=== PATIENT | female | born 1970 | race Two or more races ===

== ENCOUNTER 2018-07-03 11:07 | Emergency (ER) | payer OTHER ==
[~2018-07-03] VITALS: Ht 167.6 cm; Wt 113.4 kg
[2018-07-03 11:29] VITALS: BP 122/80
[2018-07-03 12:18] LABS: INFLUENZA A PATIENT NEGATIVE (NEGATIVE); INFLUENZA B PATIENT NEGATIVE (NEGATIVE)
--- NOTE | 2018-07-03 12:32 | RAD ---
CHEST PA LATERAL Clinical indications: COUGH AND CHEST TIGHTNESS X 4 DAYS COMPARISON: None available. Findings: No acute lung infiltrate or pleural effusion or pulmonary edema or lung mass or pneumothorax is seen. The heart size, pulmonary vasculature, mediastinum and both danna are unremarkable. The osseous structures appear intact. Impression: No acute radiographic abnormality is seen. Electronically signed by: Saul Miller MD (07/03/2018 12:29 PM) [facility]
[2018-07-03] MEDS ORDERED: FLUT9.9S NS (13:17)
[2018-07-03] MEDS ORDERED: BENZ100C PO (13:17)
[2018-07-03] MEDS ORDERED: VENTOLIN HFA18 GM INH (13:17)
--- NOTE | 2018-07-03 13:17 | PHYS DOC ---
Past Medical History Past Medical History: Hypertension Past Surgical History: Hysterectomy Alcohol Use: None Drug Use: None Adult General Chief Complaint Chief Complaint: COUGH HPI HPI Patient is a 48 year old female who presents to the ED today with cough and nasal congestion as well as body aches for week. Patient denies any fever. Patient states she wishes we could give her narcotics for her symptoms so she can sleep him informed patient we do not prescribe narcotic medication for upper respiratory infection symptoms. Review of Systems Review of Systems Constitutional: Reports body aches. Denies fever or chills [] Eyes: Denies change in visual acuity, redness, or eye pain [] HENT: Reports nasal congestion, denies sore throat [] Respiratory: Reports cough, denies shortness of breath [] Cardiovascular: No additional information not addressed in HPI [] GI: Denies abdominal pain, nausea, vomiting, bloody stools or diarrhea [] : Denies dysuria or hematuria [] Musculoskeletal: Denies back pain or joint pain [] Integument: Denies rash or skin lesions [] Neurologic: Denies headache, focal weakness or sensory changes [] All other systems were reviewed and found to be within normal limits, except as documented in this note. Allergies Allergies Allergies Coded Allergies Type Severity Reaction Last Updated Verified No Known Drug Allergies 07/03/18 No Physical Exam Physical Exam Constitutional: Well developed, well nourished, no acute distress, non-toxic appearance. [] HENT: Normocephalic, atraumatic, bilateral external ears normal, oropharynx moist, no oral exudates, nose normal. [] Eyes: PERRLA, EOMI, conjunctiva normal, no discharge. [] Neck: Normal range of motion, no tenderness, supple, no stridor. [] Cardiovascular:Heart rate regular rhythm, no murmur [] Lungs & Thorax: Bilateral breath sounds clear to auscultation [] Abdomen: Bowel sounds normal, soft, no tenderness, no masses, no pulsatile masses. [] Skin: Warm, dry, no erythema, no rash. [] Back: No tenderness, no CVA tenderness. [] Extremities: No tenderness, no cyanosis, no clubbing, ROM intact, no edema. [] Neurologic: Alert and oriented X 3, normal motor function, normal sensory function, no focal deficits noted. [] Psychologic: Affect normal, judgement normal, mood normal. [] Current Patient Data Vital Signs Vital Signs Date Time Temp Pulse Resp B/P (MAP) Pulse Ox O2 Delivery O2 Flow Rate FiO2 07/03/18 11:29 98.2 90 18 122/80 (94) 97 Room Air 98.2 Lab Values Laboratory Tests Test 07/03/18 11:34 Influenza Type A Antigen Negative (NEGATIVE) Influenza Type B Antigen Negative (NEGATIVE) EKG EKG [] Radiology/Procedures Radiology/Procedures []PROCEDURE: CHEST PA & LATERAL CHEST PA LATERAL Clinical indications: COUGH AND CHEST TIGHTNESS X 4 DAYS COMPARISON: None available. Findings: No acute lung infiltrate or pleural effusion or pulmonary edema or lung mass or pneumothorax is seen. The heart size, pulmonary vasculature, mediastinum and both danna are unremarkable. The osseous structures appear intact. Impression: No acute radiographic abnormality is seen. Electronically signed by: Ashanti Miller MD (07/03/2018 12:29 PM) [facility] DICTATED and SIGNED BY: ASHANTI MILLER MD DATE: 07/03/18 1222 Course & Med Decision Making Course & Med Decision Making Pertinent Labs and Imaging studies reviewed. (See chart for details) This is a 48-year-old female patient presenting to the ED with symptoms of upper respiratory infection symptoms including cough and nasal congestion as well as body aches, symptoms for week, chest x-ray is negative, negative influenza A or B. Symptoms are viral. Patient was discharged with albuterol inhaler,Tessalon Perles, Flonase and ibuprofen Tylenol. Encouraged to follow up with the PCP in 1-2 weeks. Provided return precautions. Dragon Disclaimer Dragon Disclaimer This electronic medical record was generated, in whole or in part, using a voice recognition dictation system. Departure Departure Impression: Primary Impression: Upper respiratory infection Additional Impression: Cough Disposition: 01 HOME, SELF-CARE Condition: STABLE Referrals: RUSSELL MART MD (PCP) follow up in 1-2 weeks Patient Instructions: Cough, Adult, [id number], Upper Respiratory Infection, Adult, [id number] Additional Instructions: You were evaluated in the emergency room with symptoms consistent of a viral upper respiratory infection. Your chest x-ray is negative for any acute findings. You are negative for influenza A or B. We put you on medications, use them as needed. Please take Tylenol/Motrin as needed for pain or fever. Follow- up with your doctor in 1-2 weeks. Scripts Albuterol Sulfate (VENTOLIN HFA INHALER) 18 Gm Hfa.aer.ad 2 PUFF INH Q4HRS for FOR ASTHMA, #1 INHALER 0 Refills Prov: VITALIY RODRIGUEZ APRN 07/03/18 Benzonatate (TESSALON PERLE) 100 Mg Capsule 1 CAP PO TID, #30 CAP Prov: VITALIY RODRIGUEZ APRN 07/03/18 Fluticasone Propionate (Flonase Allergy Relief) 9.9 Ml Trevett.susp 2 SPRAYS NS DAILY, #1 BOTTLE Prov: VITALIY RODRIGUEZ APRN 07/03/18 Problem Qualifiers Primary Impression: Upper respiratory infection URI type: unspecified URI Qualified Codes: J06.9 - Acute upper respiratory infection, unspecified VITALIY RODRIGUEZ APRN Jul 03, 2018 13:17
== END 2018-07-03 13:37 | disposition home or self-care (01) ==
LOC: ER 11:07
DX: J06.9 Acute upper respiratory infection, unspecified (principal); I10 Essential (primary) hypertension
CPT/HCPCS: 71046; 87804; 99283; 99284

== ENCOUNTER → 2020-02-15 | Outpatient (CLI) | payer OTHER ==
[~2020-02-15] MED LIST: BENZ100C PO; FLUT9.9S NS; VENTOLIN HFA18 GM INH
--- NOTE | 2020-02-15 12:03 | KCIC ---
EXAMINATION: MRI LEFT KNEE WITHOUT IV CONTRAST CLINICAL HISTORY: Left knee pain since September, no known injury but was walking for exercise TECHNIQUE: Multiplanar multisequential images obtained through the knee without intravenous contrast. COMPARISON: Bilateral knee radiographs 02/06/2020 FINDINGS: MENISCI: Medial Meniscus: Complete radial tear extending from the periphery to the inner margin in the posterior horn with mild extrusion of the body Lateral Meniscus: Intact. LIGAMENTS: ACL: Intact PCL: Intact MCL: Intact LCL Complex: Intact CARTILAGE: Medial Femoral Condyle: Moderate sized area(s) of predominantly low grade (less than 50% thickness) cartilage loss and or fissuring with smaller area(s) of high grade (greater than 50% thickness) cartilage loss and or fissuring in the weightbearing portion of the condyle Medial Tibial Plateau: Normal Lateral Femoral Condyle: Normal Lateral Tibial Plateau: Small area(s) of full thickness cartilage loss and or fissuring posteriorly Patella: Small areas(s) of predominantly low grade (less than 50% thickness) cartilage loss and or fissuring with smaller area(s) of high grade (greater than 50% thickness) cartilage loss and or fissuring predominantly in the lateral facet Trochlea: Small area(s) of full thickness cartilage loss and or fissuring with subchondral marrow reactive/cystic changes in the medial trochlea TENDONS: The distal quadriceps and patellar tendons are intact. The popliteus tendon is intact. BONES AND MARROW: No evidence of acute fracture or suspicious marrow replacing process. MUSCLES: Muscle bulk and signal intensity within normal limits. JOINT FLUID AND SYNOVIUM: Small to moderate joint effusion. Mild synovitis. No Lee's cyst. IMPRESSION: Medial meniscus tear with mild meniscal extrusion. Mild chondral wear as described, greatest in the trochlea. Electronically signed by: Dwain Norris DO (02/15/2020 12:00 PM) [id number]
== END ==
LOC: KCIC MRI 07:53
PROVIDERS: ATTEND Orthopaedic Surgery
DX: S83.242A Other tear of medial meniscus, current injury, left knee, initial encounter (principal); X58.XXXA Exposure to other specified factors, initial encounter; Y93.89 Activity, other specified; Y92.89 Other specified places as the place of occurrence of the external cause; Y99.8 Other external cause status; M25.462 Effusion, left knee; M65.88 Other synovitis and tenosynovitis, other site
CPT/HCPCS: 73721